=== PATIENT | female | born 1990 | race Asian ===

== ENCOUNTER 2017-08-17 00:13 | Inpatient (IN) | payer SELFPAY ==
[~2017-08-17] VITALS: Ht 172 cm; Wt 71.0 kg
[2017-08-17] MEDS ORDERED: OXYTOCIN 20 UNITS in LACTATED RINGERS 1,000 ML IV SCH ×3 (00:56→06:36)
[2017-08-17] MEDS ORDERED: PROMETHAZINE 25 MG/ML VIAL IVP PRN (01:00)
[2017-08-17] MEDS ORDERED: METHYLERGONOVINE 0.2 MG/ML AMP IM PRN ×2 (01:00→05:20)
[2017-08-17] MEDS ORDERED: CARBOPROST 250 MCG/ML AMP IM PRN (01:00)
[2017-08-17] MEDS ORDERED: IBUPROFEN 800 MG TAB PO PRN (01:00)
[2017-08-17] MEDS ORDERED: PREN-546 PO (01:07)
[2017-08-17 01:26] LABS: BASOPHILS # (AUTO) 0.1 K/uL (0.00-0.22); EOSINOPHILS # (AUTO) 0.1 K/uL (0-0.4); EOSINOPHILS % (AUTO) 1.2 % (0.0-4.0); HEMATOCRIT 32.3 % (36-48); HEMOGLOBIN 10.5 g/dL (12.0-16.0); LYMPHOCYTES % (AUTO) 16.2 % (20.5-51.1); MEAN CORPUSCULAR HEMOGLOBIN 30 pg (27-31); MEAN CORPUSCULAR HGB CONC 33 g/dL (33-37); MEAN CORPUSCULAR VOLUME 91 fL (80-94); MONOCYTES # (AUTO) 0.7 K/uL (0.8-1.0); MONOCYTES % (AUTO) 5.8 % (1.7-9.3); NEUTROPHILS # (AUTO) 9.6 K/uL (1.8-7.7); NEUTROPHILS % (AUTO) 75.8 % (42.2-75.2); PLATELET COUNT (AUTO) 164 K/uL (140-450); RED BLOOD CELL COUNT(AUTO) 3.55 MIL/uL (4.20-5.40); WHITE BLOOD COUNT (AUTO) 12.5 K/uL (4.8-10.8)
[2017-08-17 01:34] LABS: APPEARANCE,URINE CLEAR (CLEAR); BILIRUBIN,URINE NEGATIVE (NEGATIVE); BLOOD, URINE NEGATIVE (NEGATIVE); COLOR,URINE YELLOW (YELLOW); LEUKOCYTE ESTERASE ,URINE TRACE (NEGATIVE); NITRITE, URINE NEGATIVE (NEGATIVE); PH,URINE 6.5 (5.0-9.0); UGLUCOSE NEGATIVE (NEGATIVE)
[2017-08-17 01:51] LABS: ANION GAP 14.1 (8-16); CARBON DIOXIDE 23.6 mmol/L (21-32); CREATININE 0.7 mg/dL (0.6-1.3); POTASSIUM 3.7 mmol/L (3.5-5.1)
[2017-08-17] MEDS: LACTATED RINGERS 1,000 ML IV SCH ×4 (01:52→23:22)
[2017-08-17] MEDS ORDERED: INFLUENZA VIRUS VACCINE QUAD 0.5 ML SYR IMVAC SCH ×2 (01:55→21:55)
[2017-08-17 01:57] VITALS: BP 107/60
[2017-08-17 01:57] LABS: ALBUMIN 2.6 g/dL (3.4-5.0); TOTAL BILIRUBIN 0.1 mg/dL (0.0-1.0)
[2017-08-17 03:08] LABS: RBC,URINE 0-5 (RARE) /HPF (0-5)
[2017-08-17] MEDS ORDERED: ceFAZolin 1,000 MG VIAL ONE (05:19)
[2017-08-17] MEDS ORDERED: MEASLES, MUMPS, AND RUBELLA 1 VIAL SQVAC PRN (05:20)
[2017-08-17] MEDS ORDERED: HYDROcodone/APAP 5/325 MG 1 TAB TAB PO PRN (05:20)
[2017-08-17] MEDS ORDERED: TEMAZEPAM 15 MG CAP PO PRN (05:20)
[2017-08-17] MEDS ORDERED: TRIMETHOBENZAMIDE 200 MG/2 ML SYR IM PRN (05:20)
[2017-08-17] MEDS ORDERED: SIMETHICONE 80 MG TAB.CHEW PO PRN (05:20)
[2017-08-17] MEDS ORDERED: oxyCODONE/APAP 5/325 MG 1 TAB TAB PO PRN (05:20)
[2017-08-17] MEDS ORDERED: TRIAMCINOLONE 40 MG/ML 5ML VIAL ONE (06:03)
[2017-08-17] MEDS ORDERED: OXYTOCIN 10 UNITS/ML VIAL ONE (06:03)
[2017-08-17] MEDS ORDERED: METHYLERGONOVINE 0.2 MG/ML AMP ONE (06:04)
[2017-08-17] MEDS ORDERED: MORPHINE PRES FREE 10 MG/10 ML AMP IV ONE (06:06)
[2017-08-17] MEDS ORDERED: MIDAZOLAM 2 MG/2 ML VIAL ONE (06:06)
[2017-08-17] MEDS ORDERED: ONDANSETRON 4 MG/2 ML VIAL ONE ×2 (06:15→10:45)
[2017-08-17] MEDS ORDERED: NALOXONE 0.4 MG/ML VIAL IVP PRN ×3 (06:40)
[2017-08-17] MEDS ORDERED: diphenhydrAMINE 50 MG/ML VIAL IVP PRN ×2 (06:40)
[2017-08-17] MEDS ORDERED: NALBUPHINE 10 MG/ML AMP IVP PRN (06:40)
[2017-08-17] MEDS ORDERED: HYDROmorphone PFS 2 MG/ML SYR IVP PRN (06:40)
[2017-08-17] MEDS ORDERED: MEPERIDINE 25 MG/ML SYR IVP PRN (06:40)
--- NOTE | 2017-08-17 06:44 | NUR ---
PATIENT HAS BEEN SCREENED AND CATEGORIZED LOW NUTRITION RISK. PATIENT WILL BE SEEN WITHIN 7 DAYS OF ADMISSION. 08/23/17 JOSE D TURNER MS, RDN
[2017-08-17] MEDS ORDERED: OXYTOCIN 10 UNITS/ML VIAL IM ONE (07:00)
[2017-08-17] MEDS ORDERED: KETOROLAC 30 MG/ML VIAL IM/IVP SCH (12:00)
[2017-08-17 13:07] LABS: RAPID PLASMA REAGIN NON-REACTIVE (Non Reactiv)
[2017-08-17] MEDS ORDERED: DOCUSATE SOD/SENNA 50/8.6 MG 1 TAB PO SCH (21:00)
[2017-08-17] MEDS ORDERED: OXYTOCIN 20 UNITS/LR PREMIX 1,000 ML IV ONE (23:18)
[2017-08-18 06:14] LABS: BASOPHILS # (AUTO) 0.1 K/uL (0.00-0.22); BASOPHILS % (AUTO) 0.3 % (0.0-2.0); EOSINOPHILS # (AUTO) 0.1 K/uL (0-0.4); EOSINOPHILS % (AUTO) 0.3 % (0.0-4.0); HEMATOCRIT 30.6 % (36-48); HEMOGLOBIN 10.1 g/dL (12.0-16.0); LYMPHOCYTES # (AUTO) 1.3 K/uL (2.5-16.5); LYMPHOCYTES % (AUTO) 7.3 % (20.5-51.1); MEAN CORPUSCULAR HEMOGLOBIN 30 pg (27-31); MEAN CORPUSCULAR HGB CONC 33 g/dL (33-37); MEAN CORPUSCULAR VOLUME 90 fL (80-94); MONOCYTES # (AUTO) 0.6 K/uL (0.8-1.0); MONOCYTES % (AUTO) 3.3 % (1.7-9.3); NEUTROPHILS # (AUTO) 16.3 K/uL (1.8-7.7); NEUTROPHILS % (AUTO) 88.8 % (42.2-75.2); PLATELET COUNT (AUTO) 165 K/uL (140-450); RED CELL DISTRIBUTION WIDTH 11.3 % (11.6-13.7); WHITE BLOOD COUNT (AUTO) 18.4 K/uL (4.8-10.8)
[2017-08-18] MEDS ORDERED: OXYTOCIN 20 UNITS/LR PREMIX 1,000 ML IV ONE (06:43)
[2017-08-18] MEDS: LACTATED RINGERS 1,000 ML IV SCH (06:47)
[2017-08-18] MEDS: IBUPROFEN 800 MG TAB PO PRN ×2 (09:35→21:27)
[2017-08-18] MEDS ORDERED: MEASLES, MUMPS, AND RUBELLA 1 VIAL SQVAC PRN (21:55)
== END 2017-08-19 17:15 | disposition home or self-care (01) | DRG 766 ==
LOC: MLD 00:13 → INTOOBSV 00:13 → OBSVTOIN 00:13 → MFCC 07:55
PROVIDERS: ADMIT Obstetrics & Gynecology; ATTEND Obstetrics & Gynecology
PROC: 3E0234Z Introduction of Serum, Toxoid and Vaccine into Muscle, Percutaneous Approach (ICD-10-PCS; 2017-08-17)
PROC: 10D00Z1 Extraction of Products of Conception, Low, Open Approach (ICD-10-PCS; principal; 2017-08-17 06:00)
DX: O99.824 Streptococcus B carrier state complicating childbirth (principal); O32.1XX0 Maternal care for breech presentation, not applicable or unspecified; Z37.0 Single live birth; Z3A.39 39 weeks gestation of pregnancy; O34.211 Maternal care for low transverse scar from previous cesarean delivery; Z23 Encounter for immunization
CPT/HCPCS: 36415; 51702; 80053; 81001; 85025; 86592; 86886; 86900; 86901; 87086; 90658; 90707; 90715; J0690; J2210; J2250; J2270; J2405; J2590; J3301; J7060; J7120